=== PATIENT | male | born 1960 | race African-American/Black ===

== ENCOUNTER 2020-12-05 14:30 | Outpatient (RCR) | payer MEDICARE, MEDICAID, SELFPAY ==
--- NOTE | 2020-09-11 15:15 | PTOPEVAL ---
PHYSICAL THERAPY EVALUATION AND PLAN OF CARE 09-11-2020 Thank you for referring Yosi Xie to [facility].? He is scheduled to be seen for aquatic therapy? 1x/week for 6 weeks. Please review, sign, date and return this plan of care ALEJANDRA. I agree with and certify that the following plan of care is medically necessary. Referring Physician Date Attending Provider: Ale Lemus MD *PT Outpatient Evaluation Document 09/11/20 14:10 NIRU (Rec: 09/11/20 15:15 NIRU [id number]) Outpatient Past Medical History Past Medical History Source of Past Medical History Patient,Family/Significant Other Neurological History Hx Cerebrovascular Accident (CVA) Yes: 2015 Cardiovascular History Hx Coronary Artery Bypass Graft Yes: 2009 Hx Hypercholesterolemia Yes: meds Hx Hypertension Yes: meds Respiratory History Hx Respiratory Disorders No Significant History Musculoskeletal History Hx Back Pain Yes: chronic Hx Orthopedic Surgery Yes: cervical fracture,with fusion C2-T2- Oct 2019 paralysis; Hematological History Hx Hematological Disorders No Significant History Endocrine History Hx Diabetes Yes HEENT History Hx HEENT Disorders No Significant History Psychosocial History Hx Depression Yes Other History Hx Cancer Yes: colon resection and chemo Evaluation Information Problem Diagnosis late effects of CVA Onset 2018 Subjective Information want to strengthen legs and Query Text:As Reported By Patient/ back and arms; has not had any Family falls; Previous Treatments Previous Treatments For This Problem receiving PT & OT now at [place];want to come here for aquatic therap Prior Level of Function Activity Level (Last 3 Months) Occupation not working Hand Dominance Right Activity of Daily Living Ability Needs Some Help Indoor/Home Mobility Needs Some Help Community Mobility Not-Applicable Stairs Ability Independent Cooking No Cleaning No Laundry No Shopping No Driving No Home Setting Home Type House Environmental Barriers Railing, Ascend Right,Stairs, Greater than 4 Living Situation Alone Mobility Assistive Devices (Used Last 3 Walker, Wheeled Months) Bathroom Environment Bathtub, Standard Comments Additional Prior Level of Function
[2020-10-10 13:09] VITALS: BP_SYST 90
--- NOTE | 2020-10-10 14:20 | OTOPEVAL ---
OCCUPATIONAL THERAPY INITIAL EVALUATION: 10/10/2020 Thank you for referring Yosi Xie to [facility].? The patient is scheduled to be seen for therapy? 2x/week including 1x/week aquatic and 1x/week on land for 4 weeks. Please review, sign, date and return this plan of care ALEJANDRA. I agree with and certify that the following plan of care is medically necessary. Referring Physician Date Attending Provider: Ale Lemus, *OT Outpatient Evaluation Start: 10/10/20 13:09 Freq: Status: Active Protocol: Document 10/10/20 13:09 KJL (Rec: 10/10/20 14:19 KJL [id number]) Therapy Assessment Status Assessment Status Assessment Status Evaluation Evaluation Information Problem Diagnosis late effects of CVA Onset 2018 Additional Evaluation Detail Patient had a fall in september of 2019 resulting in a cervical fracture and subsequent spinal fusion and weakness to R side. Patient exerpienced a CVA in 2015 which resulted from a cardiac surgery procedure with residule weakness to L side. Subjective Information Patient reports due to Query Text:As Reported By Patient/ weakness in R UE having Family difficulties with bathing, dressing, toileting tasks, gripping grasping, using R UE for functional tasks and activities. Pt reports not able to complete cooking tasks due to R UE weakness Prior Level of Function Activity Level (Last 3 Months) Hand Dominance Right Activity of Daily Living Ability Needs Some Help Indoor/Home Mobility Needs Some Help Functional Cognition (Planning, Shopping Independent , Taking Medications) Cooking No Cleaning No Laundry No Shopping No Driving No Home Setting Home Type House Environmental Barriers Railing, Ascend Right,Stairs, Greater than 4 Living Situation Alone Support Available Local Family Support Cargiver Responsibilities Comment family memeber comes over daily to assist with ADLs and IADL tasks Mobility Assistive Devices (Used Last 3 Walker, Wheeled Months) Bathroom Environment Bathtub, Standard Bathing Equipment
--- NOTE | 2020-10-10 15:00 | PTOPEVAL ---
PHYSICAL THERAPY RE-EVALUATION AND UPDATED PLAN OF CARE 10-10-2020 Refer to the clinical summary below for the comparison to the initial evaluation. Thank you for referring Yosi Xie to [facility].? Yosi is scheduled to continue PT treatment, for land and aquatic exercises,? 2 x/week for 4 weeks. Please review, sign, date and return this plan of care ALEJANDRA. I agree with and certify that the following plan of care is medically necessary. Referring Physician Date Attending Provider: Ale Lemus MD *PT Outpatient Re-Evaluation Document 10/10/20 14:12 NIRU (Rec: 10/10/20 14:57 NIRU [id number]) Therapy Assessment Status Assessment Status Assessment Status Re-evaluation Subjective Information Yosi reports: spasms are Query Text:As Reported By Patient/ better; have stopped PT at the Family other facility; feel like need to work on walking and get legs stronger; Pain Assessment Timing of Pain Assessment Timing of Pain Assessment Assessment Pain Scale Pain Scale Used Numeric (1 - 10) Self Report Pain Assessment Bilateral Generalized Reported Pain Level 7 Pain Description Aching Pain Frequency Chronic,Intermittent Other Pain Description L lateral thigh ache and R knee weak Pain Score Pain Score 7: Self Report Interventions Used Interventions Used By Clinicians Exercise Lower Extremity Muscle Strength Testing General Lower Extremity Strength Gross Lower Extremity Strength sitting: ankle DF: R to 0-5' and L 10' x 20 reps; knee extension to 0': R x 10 reps- increase spasm in back/ L x 10 reps- increase ache in L lateral thigh; hip flexion R to 120' x 10 reps due to spasms in back/ L x 15 reps- spasm and pain in L leg and back; Balance Assessment Tinetti Balance Assessment Sitting Balance Steady, safe Ability to Arise Able, uses arms to help Attempts to Arise Able, requires >1 attempt Immediate Standing Balance Steady with support Standing Balance Steady, wide stance Nudged Response Staggers, catches self Standing with Eyes Closed Unsteady Step Pattern Turning 360 Degrees Discontinuous steps Stability Turning 360 Degrees Unsteady, grabs/staggers Sitting Down Uses arms or unsteady Initiation of Gait No hesitancy Right Foot Step Length Does pass stance foot Right Foot Step Height Completely clears floor Left Foot Step L
--- NOTE | 2020-10-22 13:25 | PCPTNOTE ---
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 Will call and inform department if needing to cancel 's appointment.
--- NOTE | 2020-10-31 10:40 | PCPTNOTE ---
Patient called & cancelled scheduled appointment this date due to not feeling well.
--- NOTE | 2020-11-05 12:35 | PCPTNOTE ---
Patient called & cancelled scheduled appointment this date due to no transportation.
[2020-11-08 14:43] VITALS: BP_SYST 90
--- NOTE | 2020-11-08 15:34 | OTOPEVAL ---
OCCUPATIONAL THERAPY RE-EVALUATION REPORT 11/08/2020 Thank you for referring Yosi Xie to [facility].? The patient is scheduled to be seen for continued occupational therapy? 2x/week for 4 weeks. Please review, sign, date and return this plan of care ALEJANDRA. I agree with and certify that the following plan of care is medically necessary. Referring Physician Date Referring Provider: Ale Lemus, *OT Outpatient Evaluation Evaluation Information Problem Diagnosis Fracture of cervical spine Onset Sep 2019 Additional Evaluation Detail Yosi has been seen for 3 OT treatment sessions for (R) UE contracture, rigidity, and incoordination following cervical fracture. Therapy has been focusing on HEP instruction for ROM, use of thermal modalities to improve flexibility, manual therapy, stretching, and AROM. Aquatic treatment has not been completed as planned due to patient not wanting to get into the water. Subjective Information He states that his right arm Query Text:As Reported By Patient/ is more flexible. He states Family he is now able to put socks on independently and tie the drawstring on his pants. He also states that when at rest he has been positioning the right arm in slight abduction to help with the tightness. Pain Assessment Timing of Pain Assessment Timing of Pain Assessment Re-assessment Pain Scale Pain Scale Used Numeric (1 - 10) Self Report Pain Assessment Right Shoulder(s) Reported Pain Level 7 Pain Description Aching Bilateral Generalized Reported Pain Level 7 Pain Description Aching Pain Score Pain Score 7,7: Self Report Interventions Used Interventions Used By Clinicians Rest Upper Extremity Range of Motion Scapular/ Shoulder Range of Motion Right Reason Not Measured Pain Scapular: Retraction Hypomobile Scapular: Protraction Hypomobile Shoulder Flexion - Active 80 Shoulder Flexion - Passive 100 Shoulder Extension - Active 45 Shoulder Abduction - Active 60 Shoulder Abduction - Passive 90 Shoulder Adduction - Active 0 Shoulder Medial Rotation - Active Able to touch his hip, but Query Text:Reach Behind the Back unable to extend to clear his
--- NOTE | 2020-11-08 16:13 | PTOPEVAL ---
PHYSICAL THERAPY RE-EVALUATION AND UPDATED PLAN OF CARE 11-08-2020 Refer to the clinical summary below for comparison on his status from the last reevaluation. PT is to continue treatment, 2x/week for 4 weeks. Thank you for referring Yosi Xie to [facility].? Please review, sign, date and return this updated plan of care [facility]. I agree with and certify that the following plan of care is medically necessary. Referring Physician Date Attending Provider: Ale Lemus MD *PT Outpatient Re-Evaluation Document 11/08/20 15:30 NIRU (Rec: 11/08/20 16:09 NIRU [id number]) Subjective Information Yosi reports: has not had any Query Text:As Reported By Patient/ falls; feels like his Family standing is better- can stand longer and better; using walker in the house to get around; do not use the wheel chair in the house, only when go out and go places; is doing his leg exercises at home; He stated his friend this AM and he is upset, not feeling well, but will try to do what he can today-- wanted to cancel but knew it was his reeval day; He wants to continue therapy to get stronger and walk better; Pain Assessment Timing of Pain Assessment Timing of Pain Assessment Assessment Pain Scale Pain Scale Used Numeric (1 - 10) Self Report Pain Assessment Right Shoulder(s) Reported Pain Level 7 Bilateral Generalized Reported Pain Level 7 Pain Frequency Chronic Other Pain Description L leg and lateral thigh pain- spasm Pain Score Pain Score 7,7: Self Report Interventions Used Interventions Used By Clinicians Education Lower Extremity Muscle Strength Testing General Lower Extremity Strength Gross Lower Extremity Strength sitting: R and L hip flexion to 100' x 15 reps; knee extension to 0' x 10 reps; ankle DF R to 5' x 10 reps /L to 10' x 10 reps; sit to stand- inconsistant, performed with 1 to 3 trials to stand; with use of L UE; static stand 52 seconds with wide base of support; Balance Assessment Tinetti Balance Assessment Sitting Balance Steady, safe
--- NOTE | 2020-11-12 11:08 | PCOTNOTE ---
Patient attended his 10 o'clock PT appointment, but when reminded that his OT wasn't until 12:30, he decided that he did not want to wait. Patient cancelled OT tx today.
--- NOTE | 2020-11-25 13:56 | PCPTNOTE ---
Patient called & cancelled scheduled appointment this date due to weather.
[2020-12-05 13:38] VITALS: BP_SYST 90
--- NOTE | 2020-12-05 14:20 | OTOPEVAL ---
OCCUPATIONAL THERAPY D/C NOTE 12/05/20 At this time Yosi has made no improvements in AROM or functional strength in the right UE. Unfortunately some joints show a decline in ROM. Patient attributes this to the cold as the lower temperatures make him feel more stiff and painful which makes it harder to move. Discussed with the patient that his HEP for ROM and strengthening will continue to be appropriate and that maybe continuing therapy in a few months when the weather is warmer will be more beneficial to him. He is in agreement. Plan to d/c from OT today with patient independent from OT. Thank you for referring Yosi Xie to [facility].?Please review, sign, date and return this D/C Note ALEJANDRA. I agree with and certify that the following plan of care is medically necessary. Referring Physician Date Referring Provider: Ale Lemus, MD *OT Outpatient Re-Evaluation Evaluation Information Problem Diagnosis Fracture of cervical spine Onset Sep 2019 Additional Evaluation Detail Yosi has been seen for 4 OT treatment sessions since his last re-evaluation on 11/08/20 for (R) UE contracture, rigidity, and incoordination following cervical fracture. Therapy has been focusing on HEP instruction for ROM, use of thermal modalities to improve flexibility, manual therapy, stretching, and AROM. Aquatic treatment has not been completed as planned due to patient not wanting to get into the water. Subjective Information Yosi reports improved motion Query Text:As Reported By Patient/ and flexibility of the right Family shoulder, wrist, and hand since the las re-evaluation. He states he is able to use both hands to put socks on and overall improved ability with getting dressed. He also notes improved ability to use the right hand to hold objects . He also notes less swelling in the wrist and fingers. Pain Assessment Timing of Pain Assessment Timing of Pain Assessment Re-assessment Pain Scale Pain Scale Used Numeric (1 - 10) Self Report Pain Assessment Bilateral Generalized Reported Pain Level 7 Pain Description Aching Other Pain Aggravating Factors cold weather Pain Score Pain Score 7: Self Report Interventions Used Interventions Used By Clinicians Rest Upper Extremity Range of Motion Sca
--- NOTE | 2020-12-05 15:17 | PTOPEVAL ---
PHYSICAL THERAPY DISCHAREG 12-05-2020 Refer to the clinical summary below, for Yosi's discharge status and comparison to the last reevaluation. The goals were partially achieved. Thank you for referring Yosi Xie to [facility].? Please review, sign, date and return this discharge ALEJANDRA. I agree with and certify that the following plan of care is medically necessary. Referring Physician Date Attending Provider: Ale Lemus MD Document 12/05/20 14:25 NIRU (Rec: 12/05/20 15:09 NIRU [id number]) Assessment Status Discharge Subjective Information Yosi reports: using wheeled Query Text:As Reported By Patient/ walker for mobility in home; Family has pain all over-- arms and legs hurt; doing his leg exercises at home, feels able to stand longer and legs are stronger; Pain Assessment Timing of Pain Assessment Timing of Pain Assessment Assessment Pain Scale Pain Scale Used Numeric (1 - 10) Self Report Pain Assessment Bilateral Generalized Reported Pain Level 7 Pain Frequency Chronic,Continuous Other Pain Description overall pain-- arms, legs, back Pain Score Pain Score 7: Self Report Interventions Used Interventions Used By Clinicians Education,Exercise Lower Extremity Muscle Strength Testing General Lower Extremity Strength Gross Lower Extremity Strength -static standing 3 minutes with good stability -sitting: ankle DF to 5' R & L x20; knee extension to 0' R and L x 26 reps; hip flexion to 110' R and L x 20 reps; decreased motor control/ increased tone B LE's R >L; Balance Assessment Tinetti Balance Assessment Sitting Balance Steady, safe Ability to Arise Able, uses arms to help Attempts to Arise Able, requires >1 attempt Immediate Standing Balance Steady with support Standing Balance Steady, wide stance Nudged Response Staggers, catches self Standing with Eyes Closed Unsteady Step Pattern Turning 360 Degrees Discontinuous steps Stability Turning 360 Degrees Unsteady, grabs/staggers Sitting Down Uses arms or unsteady Initiation of Gait No hesitancy Right Foot Step Length Does pass stance foot Right Foot Step Height Completely clears floor Left Foot Step Length Does pass stance foot Left Foot Step Height Completely clears floor Step Symmetry Step length appears equal Step Continuity
--- NOTE | 2020-12-13 09:32 | PCPTNOTE ---
LATE ENTRY: 11-28-20: pt's PT charge should NOT have KX modifier.
--- NOTE | 2020-12-17 15:28 | PCOTNOTE ---
From OT documentation on 12/02/20: Group Therapy charge was mistakenly clicked. Should be an E-Stim charge under Procedural-Based Charges.
== END 2020-12-06 08:59 | disposition home or self-care (01) ==
LOC: ANHPT 14:30
PROVIDERS: Visit Provider Internal Medicine Gastroenterology
DX: I69.90 Unspecified sequelae of unspecified cerebrovascular disease (principal)
CPT/HCPCS: 97014; 97110; 97113; 97116; 97140; 97150; 97161; 97165; G0283

== ENCOUNTER 2021-04-24 13:30 | Outpatient (RCR) | payer MEDICARE, MEDICAID, SELFPAY ==
[2021-01-30 13:20] VITALS: BP_SYST 90
--- NOTE | 2021-01-30 13:30 | PTOPEVAL ---
PHYSICAL THERAPY EVALUATION AND PLAN OF CARE 01-30-21 Thank you for referring Yosi Xie to [facility].? Yosi is scheduled to be seen for therapy? 2 x/week for 3 weeks. Please review, sign, date and return this plan of care ALEJANDRA. I agree with and certify that the following plan of care is medically necessary. Referring Physician Date Attending Provider: Ale Lemus MD *PT Outpatient Evaluation Document 01/30/21 12:30 NIRU (Rec: 01/30/21 13:25 NIRU [id number]) Outpatient Past Medical History Past Medical History Source of Past Medical History Recalled from Previous Visit, Confirmed with Patient/Family Neurological History Hx Cerebrovascular Accident (CVA) Yes: 2015 Cardiovascular History Hx Coronary Artery Bypass Graft Yes: 2009 Hx Hypercholesterolemia Yes: meds Hx Hypertension Yes: meds Respiratory History Hx Respiratory Disorders No Significant History Gastrointestinal History Hx Other Gastrointestinal Disorders Yes: surgical removal of colon cancer Musculoskeletal History Hx Back Pain Yes: chronic Hx Orthopedic Surgery Yes: cervical fracture,with fusion C2-T2- Oct 2019 paralysis; Hematological History Hx Hematological Disorders No Significant History Endocrine History Hx Diabetes Yes: meds control HEENT History Hx HEENT Disorders No Significant History Psychosocial History Hx Depression Yes Other History Hx Cancer Yes: colon resection and chemo Evaluation Information Problem Diagnosis cervical fusion C2-T2 Subjective Information since last here, pt stated he Query Text:As Reported By Patient/ is walking better; when saw dr Family - said doing better and needed more therapy; continue to do exercises at home; reports has had 2 falls in the past 2 weeks, tripped over things on floor- rug and clothes. and was able to get up by himself off the floor; Previous Treatments Previous Treatments For This Problem PT here, discharged in Nov 2020 Prior Level of Function Activity Level (Last 3 Months) Hand Dominance Right Home Setting Home Type House Environmental Barriers Railing, Ascend Right,Stairs, Greater than 4 Living Situation Alone Support Available Physical Assist Available Mobility Assistive Devices (Used Last 3 Cane,Walker, Wheeled Months) Comments
--- NOTE | 2021-01-30 14:26 | OTOPEVAL ---
OCCUPATIONAL THERAPY EVALUATION REPORT 01/30/21 Thank you for referring Yosi Xie to [facility].? The patient is scheduled to be seen for therapy? 2x/week for 4 weeks. Please review, sign, date and return this plan of care ALEJANDRA. I agree with and certify that the following plan of care is medically necessary. Referring Physician Date Referring Provider: Ale Lemus, MD *OT Outpatient Evaluation Therapy Assessment Status Assessment Status Assessment Status Evaluation Outpatient Past Medical History Neurological History Hx Cerebrovascular Accident (CVA) Yes: 2015 Cardiovascular History Hx Coronary Artery Bypass Graft Yes: 2009 Hx Hypercholesterolemia Yes: meds Hx Hypertension Yes: meds Respiratory History Hx Respiratory Disorders No Significant History Musculoskeletal History Hx Back Pain Yes: chronic Hx Orthopedic Surgery Yes: cervical fracture,with fusion C2-T2- Oct 2019 paralysis; Hematological History Hx Hematological Disorders No Significant History Endocrine History Hx Diabetes Yes HEENT History Hx HEENT Disorders No Significant History Psychosocial History Hx Depression Yes Other History Hx Cancer Yes: colon resection and chemo Evaluation Information Problem Diagnosis Fracture of cervical spine Onset Sep 2019 Cause Fall Additional Evaluation Detail Patient had a fall in September of 2019 resulting in a cervical fracture and subsequent spinal fusion and weakness to R side. He presents today with tone, contractures, and weakness in the right UE. He did complete ~3 months of therapy from Sep 2020-Nov 2020 at this clinic. He was discharged in Nov for a progress plateau. PSFS: Writing 4.5 [place] teeth 4.5 Eating 4 Subjective Information Patient reports that he has Query Text:As Reported By Patient/ been completing UE stretching Family exercises since he was discharged here in Nov. He states that since the weather has been warmer he has been having less pain and better movement. He states that he has noticed an improvement
--- NOTE | 2021-02-11 14:00 | PCOTNOTE ---
Patient called & cancelled scheduled appointment this date due to a family emergency.
--- NOTE | 2021-02-21 14:56 | PTOPEVAL ---
PHYSICAL THERAPY DISCHARGE 02-21-21 Refer to the clinical summary below for his status today, compared to the initial evaluation. The goals were partially achieved. Thank you for referring Yosi Xie to [facility].? Please review, sign, date and return discharge ALEJANDRA. I agree with and certify that the following plan of care is medically necessary. Referring Physician Date Attending Provider: Ale Lemus MD Document 02/21/21 14:05 NIRU (Rec: 02/21/21 14:56 NIRU [id number]) Assessment Status Discharge Subjective Information Yosi reports: better with Query Text:As Reported By Patient/ endurance and tolerance with Family walking; little less with spasms since stretching more- doing at home with helper; no falls; using either cane or wheeled walker for walking; wants to be able to get in/out bath tub, to be able to sit and soak in the tub; feeling better today during therapy-- took a pain pill before coming in; Pain Assessment Timing of Pain Assessment Timing of Pain Assessment Assessment Pain Scale Pain Scale Used Numeric (1 - 10) Self Report Pain Assessment Right Arm(s) Reported Pain Level 5 Pain Score Pain Score 5: Self Report Additional Pain Score Comments overall body aches of 5/10 and spasms of muscles in arms and legs Interventions Used Interventions Used By Clinicians Exercise Lower Extremity Muscle Strength Testing General Lower Extremity Strength Gross Lower Extremity Strength functional strength of LE's: in sitting: knee extension R and L 25 reps with extension of knee to 0'; hip flexion alternating R/L x 25 reps; static standing without UE support: 4 minutes, he was stopped by PT due to long enough time; Transfer Assessment Floor Transfer Assessment Ambulation Assistive Devices None Floor Transfer Destination mat/floor Sit to Floor Transfer Ability Maximum Assistance X 1 Floor to Sit Transfer Ability Moderate Assistance X 1 Cues Needed for Floor Transfer Tactile,Verbal Balance Assessment Tinetti Balance Assessment Sitting Balance Steady, safe Ability to Arise Able, w/o using arms Attempts to Arise Able, requires >1 attempt Immediate Standing Balance Steady w/o support Standing Balance Steady, wide stance
--- NOTE | 2021-03-04 09:43 | PCOTNOTE ---
OT re-evaluation was scheduled for last Wednesday02/28/21, but the patient called and rescheduled for today, 03/04/21. He called this AM and rescheduled again for next week.
[2021-03-11 13:59] VITALS: BP_SYST 130
--- NOTE | 2021-03-11 14:58 | OTOPEVAL ---
OCCUPATIONAL THERAPY RE-EVALUATION REPORT 03/11/21 Thank you for referring Yosi Xie to [facility].? The patient is scheduled to be seen for continued occupational therapy? 2x/week for 5 weeks. Please review, sign, date and return this plan of care ALEJANDRA. I agree with and certify that the following plan of care is medically necessary. Referring Physician Date Referring Provider: Ale Lemus, *OT Outpatient Evaluation Start: 01/30/21 13:19 Evaluation Information Problem Diagnosis Fracture of cervical spine Onset Sep 2019 Cause Fall Additional Evaluation Detail Patient had a fall in september of 2019 resulting in a cervical fracture and subsequent spinal fusion and weakness to R side. He presents today with tone, contractures, and weakness in the right UE. He did complete ~3 months of therapy from Sep 2020-Nov 2020 at this clinic. He was discharged in Nov for a progress plateau. Today is his 8th visit since beginning therapy again on 01/30/21. PSFS: Writing 5 [place] teeth 5 Eating 5 Subjective Information Yosi reports improved Query Text:As Reported By Patient/ abilities with handwriting, Family brushing his teeth, and eating with the right hand. He reports good compliance with ROM HEP and strengthening with therabands. He reports that he continues to require assist with bathing and dressing, but states he is using his right hand as much as possible for these tasks. He reports that he is now able to help pinch and pull up socks and pants. Pain Assessment Timing of Pain Assessment Timing of Pain Assessment Re-assessment Pain Scale Pain Scale Used Numeric (1 - 10) Self Report Pain Assessment Right Arm(s) Reported Pain Level 6 Pain Description Aching Bilateral Leg(s) Reported Pain Level 6 Pain Description Aching Pain Score Pain Score 6,6: Self Report Interventions Used Int
--- NOTE | 2021-04-02 12:37 | PCOTNOTE ---
Patient called & cancelled scheduled appointment this date due to not being able to make it . He also cancelled Wednesday's appt (04/07) due to having a doctor appt.
--- NOTE | 2021-04-10 14:44 | PCOTNOTE ---
Patient got appointment times mixed up today. Came in at 1:30 for his 1:00 appt. To allow patient to be seen for 60 min today, Bekah saw patient from 1:30-2 (as she had a 2:00 patient today) and Delvin saw patient from 2-2:30.
--- NOTE | 2021-04-14 13:37 | PCOTNOTE ---
Patient called and canceled appointment due to personal reasons, educated on next appointment.
--- NOTE | 2021-04-17 09:23 | PCOTNOTE ---
Patient called & cancelled scheduled appointment this date and re-scheduled his re-eval to next week due to his ankle being swollen.
--- NOTE | 2021-04-24 14:15 | OTOPEVAL ---
OCCUPATIONAL THERAPY RE-EVALUATION AND D/C SUMMARY 04/24/21 Patient presents today for 2nd OT re-evaluation since beginning therapy 01/30/21. At this time the patient has reached a functional progress plateau with the R UE. He is currently independent with HEP for stretching and strengthening and it is not appropriate to progress HEP due to no changes in ROM and strength since the last reassessment. Discharging the patient today with HEP. Thank you for referring Yosi Xie to [facility].? Please review, sign, date and return this discharge summary ALEJANDRA. I agree with and certify that the following plan of care is medically necessary. Referring Physician Date Referring Provider: Ale LemusMD *OT Outpatient Re-Evaluation Start: 01/30/21 13:19 Evaluation Information Problem Diagnosis Fracture of cervical spine Onset Sep 2019 Cause Fall Additional Evaluation Detail PSFS: Writing 5 [place] teeth 4 Eating 4 Subjective Information Yosi reports good compliance Query Text:As Reported By Patient/ with his HEP. He states he has Family been using his right arm as much as possible during daily activities. He reports improvements with picking up and carrying objects with the right arm. He states he began taking medication to help with the muscle spasms 2 days ago. Pain Assessment Timing of Pain Assessment Timing of Pain Assessment Re-assessment Pain Scale Pain Scale Used Numeric (1 - 10) Self Report Pain Assessment Generalized Reported Pain Level 6 Pain Description Aching Pain Score Pain Score 6: Self Report Interventions Used Interventions Used By Clinicians Rest Upper Extremity Range of Motion Scapular/ Shoulder Range of Motion Right Shoulder Flexion - Active 90 Shoulder Extension - Active 35 Shoulder Abduction - Active 80 Shoulder Medial Rotation - Active Able to touch hip. Query Text:Reach Behind the Back Shoulder Lateral Rotation - Active Able to touch right side of Query Text:Reach Behind the Head face/cheek. Scapular/Shoulder Range of Motion No functional gains noted Comments since last re-eval ~6 weeks ago. No decline noted either. Elbow/Forearm Range of Motion Right Elbow Flexion - Active 120 Elbow Extension - Active -40 Elbow Extension - Passive 0 Forearm Pronation - Active 85 Elbow/Forearm Range of Motion Comments No functional changes in ROM at the elbow noted since re- eval ~6 weeks ago.
== END 2021-04-25 07:28 | disposition home or self-care (01) ==
LOC: ANHOT 13:30
PROVIDERS: PCP Internal Medicine Gastroenterology; Visit Provider Internal Medicine Gastroenterology
DX: S12.9XXD Fracture of neck, unspecified, subsequent encounter (principal)
CPT/HCPCS: 97014; 97110; 97116; 97161; 97165; 97530; 97763; G0283

== ENCOUNTER 2021-08-18 13:45 | Outpatient (RCR) | payer MEDICARE, MEDICAID, SELFPAY ==
--- NOTE | 2021-06-16 11:53 | PTOPEVAL ---
PHYSICAL THERAPY EVALUATION AND PLAN OF CARE Thank you for referring Yosi Xie to [facility].? The patient is scheduled to be seen for therapy?2x/week for 6 weeks. Please review, sign, date and return this plan of care ALEJANDRA. I agree with and certify that the following plan of care is medically necessary. Referring Physician Date Attending Provider: Ale Lemus, MD Evaluation Outpatient Past Medical History Neurological History Hx Cerebrovascular Accident (CVA) Yes: 2015 Cardiovascular History Hx Coronary Artery Bypass Graft Yes: 2009 Hx Hypercholesterolemia Yes: meds Hx Hypertension Yes: meds Respiratory History Hx Respiratory Disorders No Significant History Gastrointestinal History Hx Other Gastrointestinal Disorders Yes: surgical removal of colon cancer Musculoskeletal History Hx Back Pain Yes: chronic Hx Orthopedic Surgery Yes: cervical fracture,with fusion C2-T2- Oct 2019 paralysis; Hematological History Hx Hematological Disorders No Significant History Endocrine History Hx Diabetes Yes HEENT History Hx HEENT Disorders No Significant History Psychosocial History Hx Depression Yes Other History Hx Cancer Yes: colon resection and chemo Diagnosis cervical fracture Onset 09/2019 Additional Evaluation Detail history of neck fracture and participated in physical therapy in the fall of 2019 to address physical deficits at that time. Subjective Information States that he is here today Query Text:As Reported By Patient/ to work on walking and being Family more steady on his feet. He comes to therapy evaluation using wheelchair but states that he could have gone with out it, I'd have made it. States that he has been doing his home exercises every day. States that he needs to come to therapy because we have equipment that he does not have. States he does not have a wheelchair at home. Self Report Self Report Pain Level 0 Pain Score Pain Score 0: Self Report Additional Pain Score Comments states that he does have pain from his neck down, but he wants us to work on mobility and does not thi
--- NOTE | 2021-06-23 08:51 | PCPTNOTE ---
Addendum entered by Grisel Seay, PT, DPT 06/23/21 11:37: I was notified at 9:30AM that patient called and cancelled his appointment this morning. No reason provided. Original Note: Patient did not show up for scheduled appointment this date.
--- NOTE | 2021-07-04 14:45 | OTOPEVAL ---
OCCUPATIONAL THERAPY INITIAL EVALUATION REPORT 07/04/21 Thank you for referring Yosi Xie to [facility].? The patient is scheduled to be seen for therapy? 2x/week for 6 weeks. Please review, sign, date and return this plan of care ALEJANDRA. I agree with and certify that the following plan of care is medically necessary. Referring Physician Date Referring Provider: Ale Lemus, MD *OT Outpatient Evaluation Therapy Assessment Status Assessment Status Assessment Status Evaluation Outpatient Past Medical History Neurological History Hx Cerebrovascular Accident (CVA) Yes: 2015 Cardiovascular History Hx Coronary Artery Bypass Graft Yes: 2009 Hx Hypercholesterolemia Yes: meds Hx Hypertension Yes: meds Respiratory History Hx Respiratory Disorders No Significant History Gastrointestinal History Hx Other Gastrointestinal Disorders Yes: surgical removal of colon cancer Musculoskeletal History Hx Back Pain Yes: chronic Hx Orthopedic Surgery Yes: cervical fracture,with fusion C2-T2- Oct 2019 paralysis; Hematological History Hx Hematological Disorders No Significant History Endocrine History Hx Diabetes Yes HEENT History Hx HEENT Disorders No Significant History Psychosocial History Hx Depression Yes Other History Hx Cancer Yes: colon resection and chemo Evaluation Information Problem Diagnosis Fracture of cervical spine Onset October 2019 Subjective Information History of cervical fracture Query Text:As Reported By Patient/ with several bouts of Family outpatient therapy to address stiffness and weakness in the right UE. States his arm has made progress since our last therapy session in the spring. Noting ability to use the right hand to squeeze wash cloths and to carry items . Has an elbow extension splint and a resting hand splint. Pain Assessment Timing of Pain Assessment Timing of Pain Assessment Assessment Pain Scale Pain Scale Used Numeric (1 - 10) Self Report Pain Assessment Generalized Reported Pain Level 7 Other Pain Description excruciating pain all over Pain Score Pain Score 7: Self Report Interventions Used Interventions Used By Clinicians Rest Upper Extremity Range of Motion Scapular/ Shoulder Range of Motion Right Shoulder Flexion - Active 90 Shoulder Extension - Active 35 Shoulder
--- NOTE | 2021-07-15 13:05 | PCPTNOTE ---
Patient did not show up for scheduled appointment this date. Called and had to leave a message.
--- NOTE | 2021-07-15 13:54 | PCOTNOTE ---
Patient did not show up for scheduled appointment this date. Roxana Espitia called patient and left and message.
--- NOTE | 2021-07-17 12:58 | PCOTNOTE ---
Patient did not show up for scheduled appointment this date. Called patient who reported that he does not have transportation at this time. Reminded him to call to cancel his appointment if he knows he won't make it. Also reminded him of the attendance policy. Informed of his next scheduled appointment.
--- NOTE | 2021-07-17 13:34 | PCPTNOTE ---
Patient called & cancelled scheduled appointment this date due to no transportation.
--- NOTE | 2021-07-29 08:18 | PCOTNOTE ---
Late Note: Patient called and cancelled treatments on 07/22 and 07/24 due to transportation issues.
--- NOTE | 2021-07-29 14:48 | PTOPEVAL ---
PHYSICAL THERAPY PLAN OF CARE UPDATE AND PROGRESS REPORT Thank you for referring Yosi Xie to [facility].? The patient is scheduled to be seen for therapy? 2x/week for 4 weeks. Please review, sign, date and return this plan of care ALEJANDRA. I agree with and certify that the following plan of care is medically necessary. Referring Physician Date Attending Provider: Ale Lemus, MD Diagnosis Fracture of cervical spine Onset October 2019 Additional Evaluation Detail history of neck fracture and participated in physical therapy in the fall of 2019 to address physical deficits at that time. Subjective Information states he is doing better.' Query Text:As Reported By Patient/ Tells me that he is doing his Family HEP every day Self Report Pain Assessment Generalized Reported Pain Level 6 Lower Extremity Muscle Strength Testing Hip Strength Bilateral Hip Flexion Strength 4 Good Hip Extension Strength 3 Fair Hip Abduction Strength 3+ Fair + Knee Strength Bilateral Knee Flexion Strength 5 Normal Knee Extension Strength 5 Normal Muscle Length Testing Muscle Length Testing Allan Test Shortened Muscles Short (R) Iliopsoas,Short (L) Iliopsoas,Short (R) Rectus Femoris,Short (L) Rectus Femoris Left Hamstring Length -45 Query Text:(90 - 90 Position) Right Hamstring Length -55 Query Text:(90 - 90 Position) Muscle Length Testing Comments right tight adductors - spasticity noted; cannot lie flat due to tight hip flexors Posture Posture Standing Position Posture Evaluation View Lateral Head/C-Spine Posture Flexed Thoracic Spine Posture Increased Kyphosis Lumbar Spine Posture Flattened Shoulder Posture (L) Rounded,(R) Rounded,(L) Forward,(R) Forward Hip Posture (L) Flexed,(R) Flexed Balance Assessment Carter Balance Assessment 33/56 Time Up Go (TUG) Timed Up and Go Test (TUG) (Seconds) 17 Assistive Devices Cane, Straight Comments 6weeks ago = 21seconds 5 Time Sit to Stand Time in Seconds 18.38 5 Time Sit to Stand Comments using left UE, swinging trunk Query Text:Normative Data: If Greater to create momentum Than 15 Seconds, 74% Increase Risk for 6weeks ago: 27.08seconds Recurrent Falls Gait Assessment Gait Pattern Assessment Gait Pattern Crouched Gait Other Gait Observations scissoring gait patter
--- NOTE | 2021-07-31 13:53 | PCOTNOTE ---
Patient received from physical therapy, TRANSITIONAL NURSE reports patient not feeling well but wants to try to participate with OT. After one minute of attempting to participate with OT, patient reports stomach hurting and needing to go home. OT treatment session stopped at this time.
--- NOTE | 2021-08-04 13:59 | PCPTNOTE ---
Patient called & cancelled scheduled appointment this date due to not feeling well.
--- NOTE | 2021-08-05 07:49 | PCOTNOTE ---
Patient called & cancelled scheduled appointment on 08/04/2021 due to not feeling well.
--- NOTE | 2021-08-07 13:19 | PCPTNOTE ---
Patient called & cancelled scheduled appointment this date due to having problems with .
--- NOTE | 2021-08-11 13:48 | PCPTNOTE ---
Patient called & cancelled scheduled appointment this date, no reason given.
--- NOTE | 2021-08-13 13:04 | PCPTNOTE ---
Patient called & cancelled scheduled appointment this date due to personal issues.
--- NOTE | 2021-08-13 13:18 | PCOTNOTE ---
Patient called & cancelled scheduled appointment this date.
--- NOTE | 2021-08-18 13:56 | PCPTNOTE ---
Patient called & cancelled scheduled appointment this date, no reason given.
--- NOTE | 2021-08-19 08:44 | PCOTNOTE ---
Late note for yesterday, 08/18: Patient called & cancelled scheduled appointment this date.
--- NOTE | 2021-08-20 13:19 | PCPTNOTE ---
Patient did not show up for scheduled appointment this date.
--- NOTE | 2021-08-21 10:30 | PCOTNOTE ---
Late note for 09/19: Patient did not show up for scheduled appointment this date.
--- NOTE | 2021-09-02 09:18 | PCPTNOTE ---
PHYSICAL THERAPY DISCHARGE NOTE Attending Provider: Ale Lemus, Patient:Yosi Xie Date of :1960 Patient has not returned for any further treatments since 08/18/2021, therefore will be discharged at this time. Patient?s initial visit was on 06/16/2021 had a total of 4 visits. He no showed or cancelled 9 appointments. The goals have been (met, not met, partially met). Thank you for referring this patient to [facility]. Please review, sign, date and return this discharge summary ALEJANDRA. I have been updated about the patient's current status and I agree with discharge from the above service at this time. Referring Physician Date
--- NOTE | 2021-09-02 09:22 | PCOTNOTE ---
OCCUPATIONAL THERAPY DISCHARGE NOTIFICATION 09/02/21 Patient:Yosi Xie Date of :1960 Patient has not returned for any further treatments since 07/29/2021, therefore he will be discharged at this time. Patient?s initial evaluation was on 07/04/2021 and he attended just 1 follow up visit after. Patient no showed or called and cancelled 10 appointments. The goals have been not addressed due to inconsistent attendance to therapy. Thank you for referring this patient to [facility]. Please review, sign, date and return this discharge summary ALEJANDRA. I have been updated about the patient's current status and I agree with discharge from the above service at this time. Referring Physician Date Referring Provider: Ale LemusMD
== END 2021-09-08 08:13 | disposition home or self-care (01) ==
LOC: ANHPT 13:45
PROVIDERS: PCP Internal Medicine Gastroenterology; Visit Provider Internal Medicine Gastroenterology
DX: S12.9XXD Fracture of neck, unspecified, subsequent encounter (principal)
CPT/HCPCS: 97110; 97163; 97165

== ENCOUNTER 2022-02-09 13:30 | Outpatient (RCR) | payer MEDICARE, MEDICAID, SELFPAY ==
--- NOTE | 2022-01-20 14:15 | OTOPEVAL ---
OCCUPATIONAL THERAPY INITIAL EVALUATION REPORT 01/20/22 Thank you for referring Yosi Xie to [facility]Note 2[facility]? The patient is scheduled to be seen for therapy? 2x/week for 4 weeks. Please review, sign, date and return this plan of care ALEJANDRA. I agree with and certify that the following plan of care is medically necessary. Referring Physician Date Referring Provider: Zena Her MD *OT Outpatient Evaluation Start: 01/20/22 13:31 Therapy Assessment Status Assessment Status Assessment Status Evaluation Outpatient Past Medical History Neurological History Hx Cerebrovascular Accident (CVA) Yes: 2015 Cardiovascular History Hx Coronary Artery Bypass Graft Yes: 2009 Hx Hypercholesterolemia Yes: meds Hx Hypertension Yes: meds Respiratory History Hx Respiratory Disorders No Significant History Gastrointestinal History Hx Other Gastrointestinal Disorders Yes: surgical removal of colon cancer Musculoskeletal History Hx Back Pain Yes: chronic Hx Orthopedic Surgery Yes: cervical fracture,with fusion C2-T2- Oct 2019 paralysis; Hematological History Hx Hematological Disorders No Significant History Endocrine History Hx Diabetes Yes HEENT History Hx HEENT Disorders No Significant History Psychosocial History Hx Depression Yes Other History Hx Cancer Yes: colon resection and chemo Evaluation Information Problem Diagnosis Tetraplegia Onset 10/06/2019 Subjective Information Pt states he fell and broke Query Text:As Reported By Patient/ his neck and became paralyzed Family in Sep. He states he has made a lot of improvement with therapy and would like to continue. His goal with OT is to improve his right shoulder /arm flexibility and function. He admits he hasn't been doing his exercises at home as much as he should. He lives home alone with general helper 5 hrs/day, 7 days/week. She helps with bathing, dressing, and housework. He still drives. He takes baths and has help getting in/out of the tub. Prior Level of Function Activity Level (Last 3 Months) Hand Dominance Left Activity of Daily Living Ability Needs Some Help Indoor/Home Mobility Independent Cooking No Cleaning
--- NOTE | 2022-01-20 15:33 | PTOPEVAL ---
PHYSICAL THERAPY INITIAL EVALUATION. Thank you for referring Yosi Xie to [facility].? The patient is scheduled to be seen for therapy? 2x/week for 4 weeks. Please review, sign, date and return this plan of care ALEJANDRA. I agree with and certify that the following plan of care is medically necessary. Referring Physician Date Attending Provider: PHYSICIAN NOT ON STAFF *PT Outpatient Evaluation Start: 01/20/22 Evaluation Information Diagnosis Tetraplegia Onset 10/06/2019 Subjective Information Pt states he fell and broke Query Text:As Reported By Patient/ his neck and became paralyzed Family in Sep. He states he has made a lot of improvement with therapy and would like to continue. His goal is to improve his leg and arm strength. He reports a fall a week ago without injury, he reports he falls about every 2 weeks. He reports these falls are due to his impaired balance. He is able to get off the ground without assistance of another person but states it is very difficult. Pt states he is doing leg exercises at home, but does not report specifics. He also state he walks around his house a lot. He reports he would like to be able to roll on to his stomach. Previous Treatments For This Problem two previous rounds of physical therapy Home Setting Home Type House Environmental Barriers Stairs, Threshold Living Situation Alone [employer] Responsibilities Comment Has hired assistance 5 hours a day, 7 days a week. Assist with all ADLs. Pt uses store scooter when grocery shopping Pain Assessment Lower Back Reported Pain Level 6 Pain Description Aching,Tightness Lowest Pain Intensity 4 Greatest Pain Intensity 8 Pain Aggravating Factors Sitting,Weight Bearing/ Standing Lumbar ROM Lumbar Flexion (0-90) 30 Lumbar Lateral Flexion Right (0-40) 15 Lumbar Lateral Flexion Left (0-40) 15 Lumbar ROM 50% of Normal Lumbar Comments Assessment done in sitting Lower Extremity Muscle Strength
--- NOTE | 2022-01-27 13:04 | PCOTNOTE ---
Patient did not show up for scheduled appointment this date. Called patient and left voicemail about missed appointment.
--- NOTE | 2022-01-27 14:36 | PCPTNOTE ---
Patient did not show up for scheduled appointment at 13:30. OT called Pt due to Pt missing OT appointment at 12:30. Voicemail was left about missed appointments.
--- NOTE | 2022-02-09 13:25 | PCPTNOTE ---
Patient was work with OT, when he decided he needed to leave to take care of some court issues, and cancelled scheduled appointment this date. [ ]
--- NOTE | 2022-02-11 12:34 | PCPTNOTE ---
Patient called & cancelled scheduled appointment this date due to being in court.
--- NOTE | 2022-02-16 13:29 | PCPTNOTE ---
Patient called & cancelled scheduled re-evaluation this date due to personal reasons. He was rescheduled for the earliest available opening on 03/03/22.
--- NOTE | 2022-03-03 13:29 | PCPTNOTE ---
Patient called & cancelled scheduled re-evaluation this date due to personal issues. He was able to reschedule for 03/11/22.
--- NOTE | 2022-03-11 12:42 | PCPTNOTE ---
Patient called & cancelled scheduled appointment this date due to being sick. This is his 3rd time canceling his re-evaluation. He has not rescheduled at this time.
--- NOTE | 2022-03-13 11:32 | PCPTNOTE ---
Attending Provider: PHYSICIAN NOT ON STAFF Patient:Yosi Xie Date of :1960 Patient has not returned for any further treatments since 02/09/2022, therefore he will be discharged at this time per the attendance policy of our facility. Patient?s initial visit was on 01/20/2022 12:30 and he had a total of 4 visits. Thank you for referring this patient to [facility]. Please review, sign, date and return this discharge summary ALEJANDRA. I have been updated about the patient's current status and I agree with discharge from the above service at this time. Referring Physician Date
--- NOTE | 2022-03-13 11:50 | PCOTNOTE ---
OCCUPATIONAL THERAPY DISCHARGE NOTIFICATION 03/13/22 Patient:Yosi Xie Date of :1960 Patient has not returned for any further treatments since 02/09/2022, therefore he will be discharged at this time per the attendance policy at this facility. Patient?s initial visit was on 01/20/2022 12:30 and he had a total of 4 visits. The goals have not been met. Thank you for referring this patient to [facility]. Please review, sign, date and return this discharge summary ALEJANDRA. I have been updated about the patient's current status and I agree with discharge from the above service at this time. Referring Physician Date Referring Physician: Zena Her MD
== END 2022-04-01 09:54 | disposition home or self-care (01) ==
LOC: ANHPT 13:30
PROVIDERS: PCP Internal Medicine Gastroenterology
DX: G82.50 Quadriplegia, unspecified (principal)
CPT/HCPCS: 97110; 97112; 97140; 97161; 97165; 97530

== ENCOUNTER 2022-12-11 14:00 | Outpatient (RCR) | payer MEDICARE, MEDICAID, SELFPAY | END 2023-02-24 09:21 | disposition home or self-care (01) | LOC: ANHOT 14:00 | PROVIDERS: PCP Internal Medicine Gastroenterology; Visit Provider Internal Medicine Gastroenterology | DX: I69.90 Unspecified sequelae of unspecified cerebrovascular disease (principal) | CPT/HCPCS: 99199 ==